=== PATIENT | male | born 1980 | race Caucasian/White ===

== ENCOUNTER 2017-05-08 17:17 | Emergency (ER) | payer OTHER ==
--- NOTE | 2017-05-08 17:52 | EDM.PDOC ---
ED HPI GENERAL MEDICAL PROBLEM - General Chief Complaint: Upper Extremity Injury/Pain Stated Complaint: PAIN RT ELBOW Time Seen by Provider: 05/08/17 17:28 Source of Information: Reports: Patient, Family History Limitations: Reports: Uncooperative (pt was texting and phone calling duing the HPI and PE) - History of Present Illness INITIAL COMMENTS - FREE TEXT/NARRATIVE: 36 y.o.w.m came with his SO to the ED with is SO due to pain at his Right elbow , lat aspect. Pt stated he hinjured his Righ elbow several week ago at work and was seen by hi PMD who recommended NSAIDs, which did not help. 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 No new injuries. No N/V /D or any other acute medical issues. Pt was on his phone while the HPI, texting , uncooperative. Pt stated, he was told by his PMD "he get a cortisone injections and US of his right elbow here in the ED" BP 138/81 Pulse 76 Temp 36.7 Pulse ox 98% RR 18. Onset Date: 04/18/17 Onset Time: 08:00 Duration: Week(s):, Intermittent Location: Reports: Upper Extremity, Right Quality: Reports: Ache, Burning Severity: Mild Improves with: Reports: Rest Worsens with: Reports: Movement Context: Reports: Lifting Associated Symptoms: Reports: No Other Symptoms Treatments EXPERIMENTAL BOX TESTER: Reports: NSAIDS R elbow Pain Score (Numeric/FACES): 7 - Related Data Allergies Allergy/AdvReac Type Severity Reaction Status Date / Time No Known Allergies Allergy Verified 05/08/17 17:35 Home Meds: Home Meds Diclofenac Sodium [IJD: Diclofenac Sodium] 75 mg PO .TWICE DAILY W MEALS [History] Past Medical History Musculoskeletal History: Reports: Fracture Other Musculoskeletal History: L knee fx - Past Surgical History Head Surgeries/Procedures: Reports: None Musculoskeletal Surgical History: Reports: Arthroscopic Knee, ORIF Other Musculoskeletal Surgeries/Procedures:: L knee fx with repair Social & Family History - Family History Family Medical History: Noncontributory - Tobacco Use Smoking Status *Q: Current Every Day Smoker Years of Tobacco use: 10 Packs/Tins Daily: 1 - Caffeine Use Caffeine Use: Reports: Coffee, Soda - Recreational Drug Use Recreational Drug Use: No Review of Systems - Review of Systems Review Of Systems: See Below Constitutional: Reports: No Symptoms Eyes: Reports: No Symptoms Ears: Reports: No Symptoms Nose: Reports: No Symptoms Mouth/Throat: Reports: No Symptoms Respiratory: Reports: No Symptoms Cardiovascular: Reports: No Symptoms GI/Abdominal: Reports: No Symptoms Genitourinary: Reports: No Symptoms Musculoskeletal: Reports: Muscle Pain (right elbow) Skin: Reports: No Symptoms Neurological: Reports: No Symptoms Psychiatric: Reports: No Symptoms ED EXAM, GENERAL - Physical Exam Exam: See Below Exam Limited By: Uncooperative (pt was texting and phone caling while being examined) General Appearance: Alert, WD/WN, No Apparent Distress Eye Exam: Bilateral Eye: Normal Inspection Ears: Normal External Exam Ear Exam: Bilateral Ear: Auricle Normal Nose: Normal Inspection, Normal Mucosa, No Blood, Nasal Tenderness Throat/Mouth: Normal Inspection, Normal Lips, Normal Teeth, Normal Gums, Normal Voice, No Airway Compromise Head: Atraumatic, Normocephalic Neck: Normal Inspection, Supple, Non-Tender, Full Range of Motion Respiratory/Chest: No Respiratory Distress, Lungs Clear, Normal Breath Sounds, No Accessory Muscle Use, Chest Non-Tender Cardiovascular: Normal Peripheral Pulses, Regular Rate, Rhythm, No Edema, No Rub Peripheral Pulses: 1+: Brachial (R) GI/Abdominal: Normal Bowel Sounds, Soft, Non-Tender, No Organomegaly (Male) Exam: Deferred Rectal (Males) Exam: Deferred Back Exam: Normal Inspection, Full Range of Motion Extremities: Normal Inspection, Normal Range of Motion, Non-Tender, No Pedal Edema, Other (tender lat aspect of right elbow) Neurological: Alert Psychiatric: Normal Affect, Normal Mood Skin Exam: Warm, Dry, Intact, Normal Color, No Rash Lymphatic: No Adenopathy Course - Vital Signs Text/Narrative:: 36 y.o.w.m came with his SO to the ED with is SO due to pain at his Right elbow , lat aspect. Pt stated he hinjured his Righ elbow several week ago at work and was seen by hi PMD who recommended NSAIDs, which did not help. 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 No new injuries. No N/V /D or any other acute medical issues. Pt was on his phone while the [facility], texting , uncooperative. Pt stated, he was told by his PMD "he get a cortisone injections and US of his right elbow here in the ED" BP 138/81 Pulse 76 Temp 36.7 Pulse ox 98% RR 18. PE: tender area right elbow lateral aspect. No rash, FROM Imaging: X Ray right elbow was NAD, official resport is pending Impression: R elbow sprain vs tendinitis vs bursitis Pt eloped -just walked out of the ED, not saying anything-after PE and imaging studies and after he was explained to make an appointment with ortho. Pt was on the the phone the entire time during the HPI and PE. Pt left his medication Bottle diclofenac in the ed examination room. Last Recorded V/S: Last Vital Signs Temp 36.6 C 05/08/17 17:28 Pulse 66 05/08/17 17:28 Resp 18 05/08/17 17:28 BP 131/80 05/08/17 17:28 Pulse Ox 99 05/08/17 17:28 - Orders/Labs/Meds Orders: Active Orders 24 hr Category Date Time Status Elbow Min 3V Rt [CR] Stat Exams 05/08/17 17:44 Taken Departure - Departure Time of Disposition: 18:12 Disposition: Eloped 07 Condition: Good Clinical Impression: Tendonitis of elbow, right, Bursitis - Discharge Information Referrals: PCP,None [Primary Care Provider] - Negro Lewis DO [Physician] - Forms: ED Department Discharge Additional Instructions: Please call Dr. Lewis office [phone] a.s.a.p for this Saturday. Please cont your meds , apply ice to the affected area, use armsling if possible, please come back if yoiur symptoms get worse acutely. - My Orders Last 24 Hours: My Active Orders 05/08/17 17:44 Elbow Min 3V Rt [CR] Stat - Assessment/Plan Last 24 Hours: My Active Orders 05/08/17 17:44 Elbow Min 3V Rt [CR] Stat
--- NOTE | 2017-05-09 09:35 | CR ---
INDICATION: Hurt at work 2 months ago, pain around lateral epicondyle. RIGHT ELBOW: Three views of the right elbow revealed a large posterior cranial spur off the olecranon process. No evidence of joint effusion, fracture, dislocation, or other significant bone or joint abnormality could be identified. MTDD
== END 2017-05-08 18:10 | disposition left against medical advice (07) ==
LOC: FB.ED 17:17
DX: M70.31 Other bursitis of elbow, right elbow (principal); F17.210 Nicotine dependence, cigarettes, uncomplicated
CPT/HCPCS: 73080-RT; 99283